=== PATIENT | female | born 1945 | race Caucasian/White ===

== ENCOUNTER 2019-10-24 07:40 | Day surgery (SDC) | payer MEDICARE ==
[~2019-10-24] VITALS: Ht 162.6 cm; Wt 56.9 kg
[~2019-10-24 07:40] MED LIST: CHOL10002 PO; Calcium + Vita1 EACH PO; DOCU100 PO; Excedrin Extra1 EACH PO; GLUCOSAMINE CH1 EAC1 PO; HYDACE5 PO; HYDR1TAB94 PO; LAVAP17G PO; MINE10T BOTHEARS; MULVITMIND PO; Meribin5 MG PO; Milk Of Ma400 MG/5 M PO; PANT20 PO; PROBIOTIC1 EAC1 PO
[2019-10-24] MEDS ORDERED: FISH OIL + D31 EACH (08:22)
[2019-10-24] MEDS ORDERED: ALEN70 (08:22)
--- NOTE | 2019-10-24 08:24 | NUR ---
10/24/19 0824 Rosi Nails 1 IV MISS IN RFA BY PATRICIA VALVE 1 GOOD IV IN RAC BY PATRICIA PT TOW
== END 2019-10-24 09:45 | disposition home or self-care (01) ==
LOC: ORSCSDS 07:40
PROVIDERS: Internal Medicine Gastroenterology
PROC: 0DJD8ZZ Inspection of Lower Intestinal Tract, Via Natural or Artificial Opening Endoscopic (ICD-10-PCS; principal; 2019-10-24 09:00)
DX: Z12.11 Encounter for screening for malignant neoplasm of colon (principal); K64.8 Other hemorrhoids; K21.9 Gastro-esophageal reflux disease without esophagitis
CPT/HCPCS: J2704; J7120

== ENCOUNTER 2023-09-10 07:25 | Day surgery (SDC) | payer MEDICARE ==
[~2023-09-10] VITALS: Ht 162.6 cm; Wt 58.0 kg
[2023-09-10] VITALS (8 sets, daily range): BP systolic 135–167; BP diastolic 70–76
[~2023-09-10 07:25] MED LIST changes: +A AND D OINTM42.5 GM; +ALEN70; +ASCORBIC ACID500 MG; +ASPI81CH PO; +FISH OIL + D31 EACH; +GLUC500 PO; +MAGNESIUM OXID500 MG PO; +MERIBIN5 MG; +PYRIDOXINE; +ROSU10TA PO; +TOCO1000; +VITAMIN D310 MC4
--- NOTE | 2023-09-10 08:26 | NUR ---
Ambulatory in Day Surgery. History, Chart, Medications and Allergies reviewed before start of procedure. Lungs clear T/O to Auscultation. Patient confirms NPO status and agrees with scheduled surgery. Pre-Op teaching done. Pt verbalizes understanding. Patient States Post-Procedure ride home has been arranged. PT [facility]ED [facility].
--- NOTE | 2023-09-10 10:30 | NUR ---
Discharge instructions reviewed with patient. Patient verbalizes understanding. Copy given to patient to take home. Dressing to procedure site clean, dry, intact with no visible drainage. Patient States Post-Procedure ride home has been arranged. Discharged via wheelchair to private car for ride home.
== END 2023-09-10 10:45 | disposition home or self-care (01) ==
LOC: ORSCMMR 07:25 → ORD 09:00 → ORSCMMR 09:00
PROVIDERS: Surgery
PROC: 06BY0ZC Excision of Hemorrhoidal Plexus, Open Approach (ICD-10-PCS; principal; 2023-09-10 09:00)
DX: K64.4 Residual hemorrhoidal skin tags (principal); K64.8 Other hemorrhoids; I25.10 Atherosclerotic heart disease of native coronary artery without angina pectoris; K21.9 Gastro-esophageal reflux disease without esophagitis; Z79.899 Other long term (current) drug therapy; Z79.82 Long term (current) use of aspirin
CPT/HCPCS: 88304; J0690; J1100; J2250; J2371; J2405; J2704; J3010; J7120